=== PATIENT | male | born 1985 | race Native Hawaiian/Other Pacific Islander ===

== ENCOUNTER 2018-03-26 22:19 | Emergency (ER) | payer BC ==
[~2018-03-26] VITALS: Ht 182.9 cm; Wt 81.6 kg
[~2018-03-26 22:19] MED LIST: AMOX500T5 PO; HYDR-3182 PO
[2018-03-26 22:32] VITALS: TEMP 97.7
[2018-03-26 23:05] LABS: POTASSIUM 3.5 mmol/L (3.6-5.2)
[2018-03-26 23:33] LABS: PLATELET COUNT 25 K/uL (142-355)
[2018-03-27 00:31] VITALS: BP 160/92
== END 2018-03-27 01:40 | disposition home or self-care (01) ==
LOC: ED 22:19
PROVIDERS: Emergency Medicine
DX: R10.9 Unspecified abdominal pain (principal); K81.9 Cholecystitis, unspecified
CPT/HCPCS: 36415; 80053; 82150; 83690; 85027; 96365; 96374; 96375; 99284; J1885; J2405; J2550; Q9963